=== PATIENT | female | born 1995 | race Caucasian/White ===

== ENCOUNTER 2018-12-21 17:00 | Inpatient (IN) ==
[2018-12-21 16:52] LABS: Bilirubin,Urine Negative (Negative); Blood,Urine Trace (Negative); Clarity,Urine Cloudy (Clear); Color,Urine Dark Yellow (Yellow); Glucose,Urine (UA) Normal (Normal); Ketones,Urine >=160 mg/dL (Negative); Leukocyte Esterase,Urine Large (Negative); Nitrite,Urine Positive (Negative); Protein,Urine 100 mg/dL (Neg-Trace); Urobilinogen,Urine Normal (Normal)
[2018-12-21 16:54] LABS: Bacteria,Urine Moderate per hpf (None-Few); Basophils % 0.1 %; Hematocrit 34.1 % (35.3-44.9); Hemoglobin 11.3 g/dL (11.5-15.4); Hyaline Casts,Urine None Seen per lpf (None-Few); Immature Granulocytes % 1.4 % (0-4); Lymphocytes # 1.1 K/mcL (0.6-4.6); Lymphocytes % 5.2 %; Mean Corpuscular HGB Conc 33.1 g/dL (31.6-35.5); Mean Corpuscular Hemoglobin 30.6 pg (28.0-33.3); Mean Corpuscular Volume 92.4 fL (83.0-100.0); Mean Platelet Volume 10.6 fL (9.4-12.4); Monocytes # 1.8 K/mcL (0.0-1.3); Monocytes % 8.5 %; Neutrophils # 18.4 K/mcL (1.6-8.9); Platelet Count 166 K/mcL (140-400); Red Blood Count 3.69 M/mcL (3.82-4.97); Red Cell Distribution Width 14.7 % (11.5-14.5); Segmented Neutrophils % 84.8 %; Squamous Epithelial Cell,Urine Many per lpf (None-Few); WBC,Urine 50-100 per hpf (0-3); White Blood Count 21.7 K/mcL (4.3-11.1)
--- NOTE | 2018-12-21 16:58 | OB/GYN History & Physical ---
Date of Encounter: 12/21/18 Time of Encounter: 16:53 Assessment and Plan (1) Breech presentation Current visit: Yes Status: Acute Qualifiers: Fetus number: single or unspecified fetus Qualified Code(s): O32.1XX0 - Maternal care for breech presentation, not applicable or unspecified (2) 38 weeks gestation of Current visit: Yes Status: Acute (3) Pyelonephritis affecting in third trimester Current visit: Yes Status: Acute UA with positive nitrites and large leukocytes. Pt has allergy of hives with amoxicillin. Will start ertapenem per Dr. Gongora's orders. Pt is tachycardic with SpO2 94-98%. tachycardia noted with minimal variab ility and late decelerations. Stat per Dr. Gongora. (4) Shortness of breath Current visit: Yes Status: Acute Concern for PE given LLE pain prior to onset of acute shortness of breath. LE doppler preliminary result is negative. Per Dr. Gongora we will hold off on CTA at this time due to tachycardia. History of Present Illness Chief complaint: shortness of breath, leg pain, flank pain, leaking fluid HPI: Ms. Banegas is a 23 year old female presenting at 38 weeks gestation with c/o shortness of breath. She reports she started having pain in her left calf yesterday. She then woke up with shortness of breath this am. She has also had nausea and vomiting and right flank pain today. She reports some leaking with coughing. She does also admit to urinary frequency. SHe denies chest pain, dysuria, and vaginal bleeding. Good FM. This is complicated by breech presentation. She has received adequate care with Dr. Ham. A negative GBS negative Past Med Surg Social Fam HX - Past Medical History Medical history: no medical history Psychiatric history: no psych history - Past Surgical History Surgical History: no surgical history - Social History Smoking Status: Never smoker Smokeless Tobacco Status: No Alcohol use: none Drug use: none - Family History Mother Hx Family Cardiac Disorders: No Hx Family Medical Disorders: No Obstetrical History - Pregnancies : 2 Para: 1 Livin Medications and Allergies Vits96/Iron Fum/Folic [ Tablet] 1 tab PO DAILY 12/21/18 [History] Allergy/AdvReac Type Severity Reaction Status Date / Time Amoxicillin Allergy Hives Verified 08/26/17 10:16 Review of System OB All systems PM: reviewed and no additional remarkable complaints except as stated Exam - Constitutional Constitutional: well developed, well nourished, mild distress - HEENT HEENT: Mucus Membranes Moist - Lungs Respiratory exam: CTAB - Cardiovascular Cardiovascular exam: +S1, +S2, tachycardia - Abdomen Abdomen: Present: gravid, non tender - Extremities Extremities exam: pedal edema (mild bilaterally, no erythema or warmth, doppler preliminary negative bilaterally) Results Result Diagrams: 12/21/18 16:38 12/21/18 16:38 All other labs normal. - VTE Reasons for not Prescribing Prophylaxis: Treatment not Indicated - Low risk for VTE
[~2018-12-21 17:00] MED LIST: Isovue-370 500 ML BOTTLE IVP ONE; Ringers Solution, Lactated 1,000 ML ONE
[2018-12-21 17:02] LABS: Amphetamine Screen,Urine Negative ng/mL (Cutoff=1000); Barbiturate Screen,Urine Negative ng/mL (Cutoff=200); Benzodiazepines Screen,Urine Negative ng/mL (Cutoff=200); Cannabinoid Screen,Urine Negative ng/mL (Cutoff = 50); Cocaine Screen,Urine Negative ng/mL (Cutoff= 300); Opiate Screen,Urine Negative ng/mL (Cutoff=300); Phencyclidine Screen,Urine Negative ng/mL (Cutoff=25)
[2018-12-21 17:12] LABS: Alanine Aminotransferase 8 Units/L (7-52); Albumin 3.6 g/dL (3.5-5.7); Albumin/Globulin Ratio 1.4 (1.1-2.2); Alkaline Phosphatase 164 Units/L (34-104); Aspartate Amino Transferase 13 Units/L (13-39); BUN/Creatinine Ratio 13 (6-26); Bilirubin,Total 0.5 mg/dL (0.3-1.0); Blood Urea Nitrogen 6 mg/dL (6-20); Carbon Dioxide 23 mEq/L (23-29); Chloride 100 mEq/L (98-107); Globulin 2.6 g/dL (2.4-3.5); Glucose 99 mg/dL (70-105); Osmolality,Calculated 272 (280-300); Potassium 3.4 mEq/L (3.5-5.1); Sodium 132 mEq/L (136-145); Total Protein 6.2 g/dL (6.4-8.9); eGFR For African Americans > 60 (> 60); eGFR For Non-African Americans > 60 (> 60)
[2018-12-21] MEDS ORDERED: Ertapenem 1,000 MG in 0.9 % Sodium Chloride Mini Bag 100 ML IVPB SCH (17:14)
[2018-12-21] MEDS ORDERED: Gentamicin 370 MG in 0.9 % Sodium Chloride 100 ML IVPB ONE (17:34)
[2018-12-21] MEDS ORDERED: *HR* Succinylcholine 200 MG/10 ML VIAL IVP ONE (17:34)
[2018-12-21] MEDS ORDERED: Lidocaine -MPF 2% 5 ML VIAL ONE (17:34)
[2018-12-21] MEDS ORDERED: *HR* FentaNYL (PF) 100 MCG/2 ML VIAL ONE (17:34)
[2018-12-21] MEDS ORDERED: *HR* Propofol 200 MG/20 ML VIAL IVP ONE (17:34)
[2018-12-21] MEDS ORDERED: Dexamethasone 4 MG/ML VIAL ONE (17:34)
[2018-12-21] MEDS ORDERED: Ondansetron 4 MG/2 ML VIAL ONE (17:34)
[2018-12-21] MEDS ORDERED: Metoclopramide 10 MG/2 ML VIAL IVP ONE (17:40)
[2018-12-21] MEDS ORDERED: Famotidine 20 MG/2 ML VIAL IVP ONE (17:40)
[2018-12-21] MEDS ORDERED: Oxytocin 20 units/ LR 1000 mL 20 UNIT/1,000 ML BAG IVC SCH ×2 (17:45→22:07)
[2018-12-21] MEDS ORDERED: Ringers Solution, Lactated 1,000 ML ONE ×2 (17:47→18:08)
[2018-12-21] MEDS ORDERED: Clindamycin 900 MG/50 ML 900 MG/50 ML IV.SOLN IVPB ONE (17:52)
[2018-12-21] MEDS ORDERED: Ondansetron 4 MG/2 ML VIAL IVP ONE (17:54)
[2018-12-21] MEDS ORDERED: *HR* Promethazine 25 MG/ML VIAL IVP PRN (17:54)
[2018-12-21] MEDS ORDERED: Acetaminophen IV 1,000 MG/100 ML INFUS..BTL IVPB ONE (17:54)
[2018-12-21] MEDS ORDERED: *HR* OxyCODONE Immed Rel 5 MG TABLET PO PRN (17:54)
[2018-12-21] MEDS ORDERED: *HR* Oxytocin 10 UNIT/ML VIAL IM ONE ×2 (18:08→18:39)
[2018-12-21] MEDS ORDERED: *HR* HYDROMORPHONE 2 MG/ML VIAL ONE (18:14)
--- NOTE | 2018-12-21 18:27 | Anesthesia Evaluation PreOp ---
Date of Encounter: 12/21/18 Time of Encounter: 17:25 - Past History Planned Operation: c/s Cardiac History: Denies any Significant Hx Pulmonary History: Denies Any Significant HX OCEANOLOGIST History: Denies Any Significant HX Other Medical History: Renal (UTI), GERD Anesthesia History: No Prior Anesthetic Complications : Yes Test: Positive Alcohol Use: none Drug use: none Medications and Allergies Vits96/Iron Fum/Folic [ Tablet] 1 tab PO DAILY 12/21/18 [History] Allergy/AdvReac Type Severity Reaction Status Date / Time Amoxicillin Allergy Hives Verified 08/26/17 10:16 - Meds/Allergy Pre-op Review Medications Reviewed: Yes Allergies Reviewed: Yes Beta Blockers on Current Med List: No Anesthesia Results - Labs 12/21/18 16:38 12/21/18 16:38 Anesthesia Exam 120/88 130 26 fht 188 Height: 5'2" Weight: 93 NPO (# of Hours): 6 Pain Scale: 3 Pain Scale Used: Numeric (1 - 10) - HEENT Pupil (Motor): Pupils equal Mallampati: II Teeth: Normal Oral Opening: Greater than 3 - OCEANOLOGIST LOC: Oriented OCEANOLOGIST Motor: Normal RUE, Normal LUE, Normal RLE, Normal LLE, Normal Face OCEANOLOGIST Sensory: Normal: RUE, LUE, RLE, LLE, Face - Cardiac Rhythm: Regular Murmur: None - Pulmonary Breath Sounds: bilateral Clear Respiratory Effort: Symmetrical Anesthesia Assess/Plan ASA Score: 2, E Level of consciousness: Anxious Anesthetic Plan: General (risks discussed, questions answered, verbal consnet in light of emergency status) Autologous Blood: No Recovery Plan: PACU
--- NOTE | 2018-12-21 20:29 | OB/GYN Procedure Note ---
Section - Date of procedure: 12/21/18 Preop diagnosis: category 2 FHT tracing ( tachycardia with recurrent late decels, pyelonephritis), breech Post-op diagnosis: same Procedure: primary low transverse Surgeon: Clara Gongora Quantitated Blood Loss: 800 Was there an nurse assistant present: Yes Sales Marketing Director: Jing Carter Anesthesiologist: Latisha Bearden Event Security Officer: Vinayak Rolon Anesthesia Type: General section complications: none Disposition: L&D Recovery Room Specimens: Placenta, Cord blood, Cord gasses - Infant (s) Infant A Delivery Date: 12/21/18 Infant Delivery Time: 17:45 Presentation: breech Gender: Female Gram Weight: 3.855 kg at 1 minute: 8 at 5 minutes: 8 Shoulder Dystocia: not encountered - Narrative Narrative: The patient was taken to the operating room where she was prepped and draped in the usual sterile fashion in the dorsal supine position with a left-yee tilt. She was then placed under general anesthesia. A Pfannenstiel skin incision was made with the scalpel and carried through to the underlying layer of fascia. The fascia was incised in the midline and extended laterally and bluntly. The underlying rectus muscles were dissected off bluntly and in the midline allowing access into the abdomen. The peritoneum was bluntly dissected, entered, and extended superiorly and inferiorly with good visualization of the bladder. The bladder blade was inserted. The lower uterine segment was incised in a transverse fashion using the scalpel and extended using manual traction. Meconium stained fluid was noted. The infant was subsequently delivered atraumatically. The was delivered in breech presentation. The cord was clamped and cut. The infant was subsequently handed to the awaiting nursery nurse. Next, cord blood and cord gases were obtained. The placenta was removed spontaneously intact with a 3- vessel cord noted. The uterus was exteriorized and cleared of all clots and debris. The uterus was noted to be atonic so I called for 0.25mg of Hemabate of which I injected into the uterus. The uterus became firm. The uterine incision was repaired in 2 layers using 0 vicryl suture. Hemostasis was visualized. The uterus was returned to the abdomen. The uterine incision was reexamined and was noted to be hemostatic. The fascia was closed with 0 Vicryl, the subcutaneous layer was closed with 3-0 vicryl and the skin was closed with 4-0 vicryl. Sponge, lap, and instrument counts were correct x2. The patient was stable at the completion of the procedure and was subsequently transferred to the recovery room in stable condition.
[2018-12-21] MEDS: *HR* HYDROmorphone (PF) 1 MG/ML SYRINGE IVP PRN ×2 (20:34→20:55)
--- NOTE | 2018-12-21 20:43 | Anesthesia Evaluation Post Op ---
Date of Encounter: 12/21/18 Time of Encounter: 20:42 - Lungs Lungs: Clear Ascult./Percussion - Airway Airway: Non-obstructed - Cardiovascular Regular Rate - Mental Status Mental Status: Alert & Oriented, Answers Appropriately - Pain Pain Scale: 4 Pain Scale used: Numeric (1 - 10) - Nausea Vomiting Nausea Vomiting: Not Present - Hydration Hydration: Meade catheter - Discharge PostOp Status: Transfer Patient to floor (VSS, moderate pain, febrile, stable to floor for further care, no anesthetic complications)
[2018-12-21] MEDS ORDERED: Ringers Solution, Lactated 1,000 ML IVC SCH (22:07)
[2018-12-21] MEDS ORDERED: Metoclopramide 10 MG/2 ML VIAL IVP PRN (22:07)
[2018-12-21] MEDS ORDERED: Rho Immune Globulin 1,500 UNIT SYRINGE IM ONE (22:07)
[2018-12-21] MEDS ORDERED: Sennosides 8.6 MG TABLET PO PRN (22:07)
[2018-12-21] MEDS ORDERED: Ondansetron 4 MG/2 ML VIAL IVP PRN (22:07)
[2018-12-22] MEDS: Ibuprofen 600 MG TABLET PO PRN ×5 (00:53→23:40)
[2018-12-22 05:07] LABS: Basophils % 0.1 %; Immature Granulocytes % 0.9 % (0-4); Lymphocytes # 1.5 K/mcL (0.6-4.6); Mean Corpuscular HGB Conc 32.5 g/dL (31.6-35.5); Mean Corpuscular Hemoglobin 30.6 pg (28.0-33.3); Mean Corpuscular Volume 94.3 fL (83.0-100.0); Mean Platelet Volume 10.6 fL (9.4-12.4); Monocytes % 9.5 %; Neutrophils # 17.8 K/mcL (1.6-8.9); Nucleated Red Blood Cells 0.1 /100 WBC (0); Platelet Count 164 K/mcL (140-400); Red Blood Count 2.97 M/mcL (3.82-4.97); Red Cell Distribution Width 15.2 % (11.5-14.5); Segmented Neutrophils % 82.5 %; White Blood Count 21.5 K/mcL (4.3-11.1)
[2018-12-22 05:12] LABS: Hemoglobin 9.1 g/dL (11.5-15.4)
[2018-12-22] MEDS: *HR* OxyCODONE/APAP 5/325 TABLET PO PRN ×4 (06:15→23:40)
[2018-12-22] MEDS: Clindamycin 900 MG/50 ML 900 MG/50 ML IV.SOLN IVPB SCH ×4 (08:55→23:40)
[2018-12-22] MEDS: Prenatal Vit/FA 1 EACH TABLET PO SCH (08:56)
[2018-12-22] MEDS ORDERED: Prenatal Vit/FA 1 EACH TABLET PO SCH (09:00)
--- NOTE | 2018-12-22 09:59 | Cardiothoracic Consult Note ---
Date of Encounter: 12/22/18 Time of Encounter: 09:56 Assessment and Plan (1) Aberrant subclavian artery Current Visit: Yes Status: Acute The assessment and plan as outlined above was discussed with the patient and/or family members who expressed understanding and agreement. All questions were answered. I have spoken to the primary referring physician. 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 Currently there would be no indication for surgical resection and reimplantation. As the patient is not having any compromise of her esophageal function throughout the last 24 years of her life and is not in need of any esophageal procedure, no further follow-up is required. More than 50% of the time spent with research and education. - History of Present Illness Consult date: 12/22/18 Requesting physician: Clara Gongora Consult reason: aberrant subclavian artery Chief complaint: sob History of present illness: Ms. Banegas is a 23 year old female who presented to the [facility] on 12/21/18 for shortness of breath and some tenderness in her calf. Her workup included a CT scan of the chest rule out pulmonary embolism given the symptoms and . 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 Her Tenderness and shortness of breath today are improved. Past Med Surg Social Fam HX - Past Medical History Medical history: no medical history Psychiatric history: no psych history - Past Surgical History Surgical History: other Additional surgical history: Oral surgery - Social History Smoking Status: Never smoker Smokeless Tobacco Status: No Alcohol use: none Drug use: none - Family History Mother Hx Family Cardiac Disorders: No Hx Family Medical Disorders: No - Additional Family History Additional family history: cva, breast cancer, brain cancer Medications and Allergies Vits96/Iron Fum/Folic [ Tablet] 1 tab PO DAILY 12/21/18 [History] Allergy/AdvReac Type Severity Reaction Status Date / Time Amoxicillin Allergy Hives Verified 12/21/18 21:00 All Systems Review: The remainder of the systems were reviewed and are negative - Cardiovascular Cardiovascular: dyspnea on exertion - Gastrointestinal Gastrointestinal: other (dyspepsia with ) - Genitourinary Genitourinary: other (slight incontinence during ) Physical Examination Vital Signs, Last 4 Hours Temp Pulse Resp BP Pulse Ox 12/22/18 09:14 14 12/22/18 07:45 98.3 F 114 20 109/65 96 General: Conversant, No Apparent Distress, Well developed, Well nourished HEENT: Atraumatic, Normocephaly, Trachea midline Neck: Normal carotid pulses Cardiac: Reg Rate and Rhythm, Normal S1 and S2, No Murmur Lungs: Normal Breath Sounds Neuro: Alert and responsive, No focal deficits noted, Cranial nerves intact, Motor nerves intact Vascular: Normal capillary refill Abdomen: Soft, Other (slight tenderness given c section in the last 24 hours) Extremities: No Clubbing, No Cyanosis, No Edema, Normal Pulses Results 12/22/18 04:46 12/21/18 16:38 Lab Results, Last 24 hours 12/21/18 12/21/18 12/22/18 16:38 16:38 04:46 WBC 21.7 H 21.5 H Hgb 11.3 L 9.1 L D Hct 34.1 L 28.0 L Plt Count 166 164 Sodium 132 L Potassium 3.4 L Chloride 100 Carbon Dioxide 23 BUN 6 Creatinine 0.48 L Glucose 99 Calcium 9.0 Total Bilirubin 0.5 AST 13 ALT 8 Alkaline Phosphatase 164 H - Imaging Chest Xray: image reviewed Consult Discharge Plan - Plan Referrals: Amber Lozada CNP [Primary Care Provider] -
--- NOTE | 2018-12-22 11:11 | Gastroenterology Consult Note ---
<Juan Miguel Shresthan M - Last Filed: 12/22/18 11:09> Date of Encounter: 12/22/18 Time of Encounter: 09:15 - Assessment and plan (1) Abnormal CT scan, esophagus Status: Acute Assessment and plan: CTA was done due to complaints of shortness of breath and tachycardia followinga section. Imaging shows that heresophagus is compressed between the trachea and a diverticulum. She denies any symptoms at all she is tolerating aa diet without difficulty. Patient was seen by cardiovascular surgeon and surgery for an aberrant aorta, no surgery was indicated. Pt can follow up as an outpatient as there are no acute or past symptoms of esophageal obstruction. - Time Spent With Patient Total time spent is greater than 50% in coordination of care (as documented) at patient's floor/unit and/or counseling patient: GI History of Present Illness - Data of Consult Patient: new to practice Consult date: 12/22/18 Requesting Physician: Tracey Cutler CNM - Consult Narrative Reason for consult: abnormality of the esophagus on CTA History of present illness: Ms Banegas is 23-year-old female who is status post section. She will developed tachycardia and shortness of breath. CTA of the chest was done which showed no PE however there was findings that her esophagus was compressed between the trachea and a diverticulum. She denies any dysphagia, odynophagia, or acid reflux. She denies any epigastric pain nausea or vomiting. Past Med Surg Social Fam HX - Past Medical History Medical history: no medical history Psychiatric history: no psych history - Past Surgical History Surgical History: other Additional surgical history: Oral surgery - Social History Smoking Status: Never smoker Smokeless Tobacco Status: No Alcohol use: none Drug use: none - Family History Mother Hx Family Cardiac Disorders: No Hx Family Medical Disorders: No Review of Systems: GI: as per [facility] GENERAL: denies fever, has some chills EYES: denies yellow discoloration ENT: denies pain with swallowing or difficulty swallowing CARDIO: see HPI RESP: see HPI : denies change in color of urine NEURO: denies any weakness HEME: Denies any bruising MS: denies joint pain, joint swelling or back pain. DERM: denies rash or itching PSYCH: Denies history of anxiety or depression - Constitutional Vitals: Temp Pulse Resp BP Pulse Ox 98.3 F 114 14 109/65 96 07/03/19 07:45 12/22/18 07:45 12/22/18 09:14 12/22/18 07:45 12/22/18 07:45 Exam: CONSTITUTIONAL:alert, no acute distress.HEAD:normocephalic.EYES:no jaundice.NECK:no obvious swelling.HEART:regular rate and rhythm, no murmurs.LUNGS:bilateral good air entry.ABDOMEN:non distended, soft, non tender, no masses palpable, no organomegaly.RECTAL EXAM:Deferred.EX TREMITIES:no clubbing, cyanosis or edema.SKIN:no stigmata of chronic liver disease.NEUROLOGIC:no obvious focal defect. Results - Labs CBC & Chem 7: 12/22/18 04:46 12/21/18 16:38 Labs: Entire Visit 12/22/18 04:46 Hgb 9.1 L D Hct 28.0 L - Impressions Impressions Chest CTA 12/21/18 21:00 IMPRESSION: 1. No evidence for filling defect to indicate acute pulmonary embolism. Note that due to technical factors the distal branches particularly segmental and subsegmental branches are not well enhanced and could obscure small emboli. 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 3. Mural soft tissue density felt to represent mural plaque involving the length of the common hepatic artery reducing the enhancing lumen to about 25% of normal indicating high-grade stenosis. Similar but less pronounced finding noted involving short segment of splenic artery at the origin. These findings may be better assessed with a CT angiogram deemed clinically necessary. 4. Bibasilar subsegmental atelectasis. The findings were sent to the Radiology Results Communication [facility] at 10:13 pm on 12/21/2018to be communicated to a licensed caregiver. D/ / Julio C Jeff MD / Julio C Jeff MD Interpreting Provider: Julio C Jeff MD Consult Discharge Plan - Plan Referrals: Chato Ham MD [Partnered Physician] - Prescriptions: Breast Pump [BREAST PUMP] 1 each .ROUTE PRN PRN #1 each PRN Reason: latch on difficulty Ferrous Sulfate 325 mg PO BIDWM #60 tablet metroNIDAZOLE [Flagyl] 500 mg PO BID #20 tablet levoFLOXacin [Levaquin] 500 mg PO DAILY #10 tablet Ibuprofen [Motrin] 600 mg PO Q6HR PRN #40 tablet PRN Reason: Cramping OxyCODONE/APAP 5/325 [Percocet 5/325 MG] 1 each PO Q4HR PRN 7 Days #28 tablet PRN Reason: post op pain <Hemal Meyers - Last Filed: 12/28/18 03:42> Date of Encounter: 12/22/18 - Time Spent With Patient Total time spent is greater than 50% in coordination of care (as documented) at patient's floor/unit and/or counseling patient: GI History of Present Illness - Data of Consult Requesting Physician: Sandra Perdue - Consult Narrative History of present illness: Ms. Banegas is a 23 year old female - Constitutional Vitals: Temp Pulse Resp BP Pulse Ox 98.2 F 88 16 108/67 96 12/26/18 08:46 12/26/18 08:46 12/26/18 08:46 12/26/18 08:46 12/26/18 08:46 Results - Labs CBC & Chem 7: 12/26/18 05:38 12/25/18 05:08 - Attending Attestation 23 year old female with rather rare finding as above. Reviewed scan. Agree with cardiovascular assessment. Patient asymptomatic at this time. No dysphagia. CTA negative for PE. Recommend no intervention at this time - watchful waiting.
[2018-12-22] MEDS ORDERED: Rho Immune Globulin 1,500 UNIT SYRINGE IM ONE ×2 (12:14→16:55)
--- NOTE | 2018-12-22 12:32 | OB/GYN Progress Note ---
Date of Encounter: 12/22/18 Time of Encounter: 12:29 - Assessment and Plan (1) Status post primary low transverse section Current Visit: Yes Status: Acute Continue routine care anticipate discharge home tomorrow (2) Pyelonephritis affecting in third trimester Current Visit: Yes Status: Acute cultures still pending at this time Subjective - Subjective Principal diagnosis: /postop day 1 Interval history: Patient is postop day 1 following a primary c/s for tachycardia with decels. Patient report pain is well controlled. No documented fever for past 9 hours. Cultures still pending. Patient reports: appetite normal, voiding normally, pain well controlled : in NICU Objective - Vital Signs Latest vital signs: Vital Signs Temp Pulse Resp BP Pulse Ox 12/22/18 09:14 14 12/22/18 07:45 98.3 F 114 20 109/65 96 12/22/18 03:55 99.8 F H 120 14 116/68 97 12/22/18 00:45 97.9 F 98 16 122/76 99 12/21/18 23:45 98.2 F 105 16 108/70 96 12/21/18 23:00 98.2 F 108 16 104/65 94 12/21/18 22:18 98.2 F 109 16 119/71 95 12/21/18 21:45 98.3 F 105 16 111/65 95 Intake and Output 12/21/18 12/22/18 12/22/18 23:59 07:59 15:59 Intake Total 450 / 450 Output Total 1000 / 1000 715 / 715 Balance -1000 / -1000 -265 / -265 Intake: IV Fluids 50 / 50 Cleocin Premix 900 MG/50 ML 900 50 / 50 mg In 50 ml @ 50 mls/hr IVPB Q8HR [facility] Rx#:[id number] Oral 400 / 400 Output: Catheter 1000 / 1000 715 / 715 Other: Weight 93.894 kg 85.774 kg Patient Weight 12/22/18 23:59 Weight 85.774 kg - Exam Lungs: bilateral: normal Extremities: Present: normal Abdomen: Present: normal appearance, soft Incision: Present: dry, dressed Uterus: Present: normal, firm Fundal Height: 2 (U/2) - Labs Labs: Laboratory Results - last 24 hr 12/21/18 12/21/18 12/21/18 16:38 16:38 16:38 WBC 21.7 H RBC 3.69 L Hgb 11.3 L Hct 34.1 L MCV 92.4 MCH 30.6 MCHC 33.1 RDW 14.7 H Plt Count 166 MPV 10.6 Immature Gran % 1.4 Seg Neutrophils % 84.8 Lymphocytes % 5.2 Monocytes % 8.5 Eosinophils % 0.0 Basophils % 0.1 Neutrophils # 18.4 H Lymphocytes # 1.1 Monocytes # 1.8 H Eosinophils # 0.0 Basophils # 0.0 Nucleated RBCs/100 WBC Sodium Potassium Chloride Carbon Dioxide BUN Creatinine Est GFR ( Amer) Est GFR (Non-Af Amer) BUN/Creatinine Ratio Glucose Calculated Osmolality Calcium Total Bilirubin AST ALT Alkaline Phosphatase Serum Total Protein Albumin Globulin Albumin/Globulin Ratio Urine Color Dark Yellow Urine Clarity Cloudy A Urine pH 6.0 Ur Specific Dighton 1.020 Urine Protein 100 H Urine Glucose (UA) Normal Urine Ketones >=160 H Urine Blood Trace H Urine Nitrite Positive A Urine Bilirubin Negative Urine Urobilinogen Normal Ur Leukocyte Esterase Large H Urine Microscopic RBC 3-5 H Urine Microscopic WBC 50-100 H Ur Squamous Epith Cells Many H Urine Bacteria Moderate H Hyaline Casts None Seen Ur Culture Indicated? YES A Random Gentamicin Urine Opiates Screen Negative Ur Buprenorphine Scrn Negative Ur Barbiturates Screen Negative Ur Phencyclidine Scrn Negative Ur Amphetamines Screen Negative U Benzodiazepines Scrn Negative Urine Cocaine Screen Negative U Marijuana (THC) Screen Negative Ur Drug Screen Interp See Below Screen Baby's Blood Type Mother's Blood Type Rhogam Indicated Rhogam Req for Mother 12/21/18 12/21/18 12/22/18 16:38 19:05 04:46 WBC 21.5 H RBC 2.97 L Hgb 9.1 L D Hct 28.0 L MCV 94.3 MCH 30.6 MCHC 32.5 RDW 15.2 H Plt Count 164 MPV 10.6 Immature Gran % 0.9 Seg Neutrophils % 82.5 Lymphocytes % 7.0 Monocytes % 9.5 Eosinophils % 0.0 Basophils % 0.1 Neutrophils # 17.8 H Lymphocytes # 1.5 Monocytes # 2.0 H Eosinophils # 0.0 Basophils # 0.0 Nucleated RBCs/100 WBC 0.1 H Sodium 132 L Potassium 3.4 L Chloride 100 Carbon Dioxide 23 BUN 6 Creatinine 0.48 L Est GFR ( Amer) > 60 Est GFR (Non-Af Amer) > 60 BUN/Creatinine Ratio 13 Glucose 99 Calculated Osmolality 272 L Calcium 9.0 Total Bilirubin 0.5 AST 13 ALT 8 Alkaline Phosphatase 164 H Serum Total Protein 6.2 L Albumin 3.6 Globulin 2.6 Albumin/Globulin Ratio 1.4 Urine Color Urine Clarity Urine pH Ur Specific Dight[place] Urine Protein Urine Glucose (UA) Urine Ketones Urine Blood Urine Nitrite Urine Bilirubin Urine Urobilinogen Ur Leukocyte Esterase Urine Microscopic RBC Urine Microscopic WBC Ur Squamous Epith Cells Urine Bacteria Hyaline Casts Ur Culture Indicated? Random Gentamicin Urine Opiates Screen Ur Buprenorphine Scrn Ur Barbiturates Screen Ur Phencyclidine Scrn Ur Amphetamines Screen U Benzodiazepines Scrn Urine Cocaine Screen U Marijuana (THC) Screen Ur Drug Screen Interp Screen NEGATIVE Baby's Blood Type A RH POSITIVE Mother's Blood Type A RH NEGATIVE Rhogam Indicated YES Rhogam Req for Mother 1 12/22/18 04:46 WBC RBC Hgb Hct MCV MCH MCHC RDW Plt Count MPV Immature Gran % Seg Neutrophils % Lymphocytes % Monocytes % Eosinophils % Basophils % Neutrophils # Lymphocytes # Monocytes # Eosinophils # Basophils # Nucleated RBCs/100 WBC Sodium Potassium Chloride Carbon Dioxide BUN Creatinine Est GFR ( Amer) Est GFR (Non-Af Amer) BUN/Creatinine Ratio Glucose Calculated Osmolality Calcium Total Bilirubin AST ALT Alkaline Phosphatase Serum Total Protein Albumin Globulin Albumin/Globulin Ratio Urine Color Urine Clarity Urine pH Ur Specific Dight[place] Urine Protein Urine Glucose (UA) Urine Ketones Urine Blood Urine Nitrite Urine Bilirubin Urine Urobilinogen Ur Leukocyte Esterase Urine Microscopic RBC Urine Microscopic WBC Ur Squamous Epith Cells Urine Bacteria Hyaline Casts Ur Culture Indicated? Random Gentamicin 0.4 Urine Opiates Screen Ur Buprenorphine Scrn Ur Barbiturates Screen Ur Phencyclidine Scrn Ur Amphetamines Screen U Benzodiazepines Scrn Urine Cocaine Screen U Marijuana (THC) Screen Ur Drug Screen Interp Screen Baby's Blood Type Mother's Blood Type Rhogam Indicated Rhogam Req for Mother
--- NOTE | 2018-12-22 12:59 | Electrocardiograph Report ---
[address] [address] Test Date: 2018-12-21 Pat Name: Sivan Banegas Department: 101 Room: [facility] Gender: F Medical Insurance Collector: HEATHER : 1995 Requested By: Tracey Wiggins Order Number: [id number] Reading MD: Migdalia Tejada Measurements Intervals O'Brien Rate: 132 P: 46 OH: 148 QRS: 36 QRSD: 88 T: 46 QT: 378 QTc: 456 Interpretive Statements SINUS TACHYCARDIA NONSPECIFIC T-WAVE ABNORMALITY ABNORMAL RHYTHM ECG Electronically Signed On 12-22-2018 12:57:25 EDT by Migdalia Tejada
[2018-12-22] MEDS ORDERED: Ertapenem 1,000 MG in 0.9 % Sodium Chloride Mini Bag 100 ML IVPB SCH (17:00)
[2018-12-22] MEDS: Gentamicin 370 MG in 0.9 % Sodium Chloride 100 ML IVPB SCH (17:44)
[2018-12-23] MEDS ORDERED: Acetaminophen 325 MG TABLET PO ONE (01:01)
[2018-12-23] MEDS: Simethicone 80 MG TAB.CHEW PO PRN ×2 (01:09→08:13)
[2018-12-23] MEDS: *HR* OxyCODONE/APAP 5/325 TABLET PO PRN ×4 (05:46→23:10)
[2018-12-23] MEDS: Ibuprofen 600 MG TABLET PO PRN ×3 (05:46→23:10)
[2018-12-23 08:04] LABS: Hematocrit 23.4 % (35.3-44.9); Hemoglobin 7.6 g/dL (11.5-15.4); Mean Corpuscular HGB Conc 32.5 g/dL (31.6-35.5); Mean Corpuscular Hemoglobin 30.9 pg (28.0-33.3); Mean Corpuscular Volume 95.1 fL (83.0-100.0); Mean Platelet Volume 10.7 fL (9.4-12.4); Platelet Count 148 K/mcL (140-400); Red Blood Count 2.46 M/mcL (3.82-4.97); Red Cell Distribution Width 15.2 % (11.5-14.5); White Blood Count 22.6 K/mcL (4.3-11.1)
[2018-12-23] MEDS: Clindamycin 900 MG/50 ML 900 MG/50 ML IV.SOLN IVPB SCH ×2 (08:14→16:40)
[2018-12-23] MEDS: Prenatal Vit/FA 1 EACH TABLET PO SCH (08:14)
[2018-12-23 09:57] LABS: Basophils % 0.1 %; Eosinophils % 0.1 %; Immature Granulocytes % 1.5 % (0-4); Lymphocytes # 1.5 K/mcL (0.6-4.6); Lymphocytes % 6.7 %; Monocytes # 2.2 K/mcL (0.0-1.3); Monocytes % 9.8 %; Neutrophils # 18.5 K/mcL (1.6-8.9); Segmented Neutrophils % 81.8 %
--- NOTE | 2018-12-23 11:26 | OB/GYN Progress Note ---
Date of Encounter: 12/23/18 Time of Encounter: 11:24 - Assessment and Plan (1) Chorioamnionitis, delivered, current hospitalization Current Visit: Yes Status: Acute This is a clinical diagnosis based on both patient and symptoms. Pathology evaluation is pending. Patient is still having spiking fevers, urine culture negative. With last fever, no blood cultures obtained. Patient has a long history of being on oral clindamycin, unknown if there is some resistance inherent in this patient's constitution to clindamycin. Continue Clinda and gent and add back ertapenem as she has taken it without reaction, known amoxicillin allergy, to increase gram-positive coverage. Continue to observe. Clinically patient is improving (2) Postoperative fever Current Visit: Yes Status: Acute Patient with a 102.1 fever just after midnight today. She was symptomatic with chills at that time. White count continues to remain elevated without much change and differential continues to remain the same. In addition of ertapenem antibiotic, as previously recommended by the ID service. Continue close observation. (3) Status post primary low transverse section Current Visit: Yes Status: Acute The patient had a nonreassuring tracing with maternal tachycardia and fever. At the time there was concern about cardiovascular issues SNOMED Code(s): 652733024, [id number], [id number], [id number], [id number] (4) Postoperative anemia due to acute blood loss Current Visit: Yes Status: Acute The admitting hemoglobin was 11, postop day 9.1, postop day 2 hemoglobin was 7.4. Repeat H&H later today to confirm stability. Patient clinically stable Subjective - Subjective Principal diagnosis: POD2 Interval history: The patient is tolerating a regular diet, ambulating, voiding and having return of bowel function. She is able to ambulate to the NICU to visit her who is improving. She had fevers and chills last night. She reports light vaginal bleeding Patient reports: appetite normal, voiding normally, pain well controlled, ambulating normally, no dizzy ambulation, no nauseated [place]: in NICU (improving) Objective - Vital Signs Latest vital signs: Vital Signs Temp Pulse Resp BP Pulse Ox 12/23/18 08:21 97.5 F L 95 16 93/53 99 12/23/18 05:40 97.6 F 95 14 100/65 100 12/23/18 02:45 97.7 F 96 14 103/60 97 12/23/18 00:40 102.1 F H 131 14 106/64 99 12/22/18 23:46 100.9 F H 104 14 115/62 100 12/22/18 21:30 98 F 107 14 105/58 100 12/22/18 17:30 14 12/22/18 17:23 98.5 F 116 16 105/56 12/22/18 12:10 98.1 F 107 14 99/59 98 Intake and Output 12/22/18 12/23/18 12/23/18 23:59 07:59 15:59 Intake Total 500 / 1000 650 / 800 150 / 800 Output Total 1000 / 2315 900 / 900 Balance -500 / -1315 650 / -100 -750 / -100 Intake: IV Fluids 0 / 100 50 / 50 Cleocin Premix 900 MG/50 ML 900 0 / 100 50 / 50 mg In 50 ml @ 50 mls/hr IVPB Q8HR [facility] Rx#:[id number] Oral 500 / 900 600 / 750 150 / 750 Output: Urine 1000 / 1600 900 / 900 - Exam Lungs: bilateral: normal Chest: Normal S1, Normal S2 Extremities: Present: normal, edema (Mild pretibial, stable). Absent: tenderness Abdomen: Present: normal appearance, soft, tenderness (Minimal and appropriate), other (No peritoneal signs, no guarding or rigidity). Absent: distention Incision: Present: normal, dry, intact, dressed Uterus: Present: firm, tenderness (Minimal and appropriate) Comments: Fundus at U -2 - Labs Labs: Laboratory Results - last 24 hr 12/23/18 07:40 WBC 22.6 H RBC 2.46 L Hgb 7.6 L D Hct 23.4 L MCV 95.1 MCH 30.9 MCHC 32.5 RDW 15.2 H Plt Count 148 MPV 10.7 Immature Gran % 1.5 Seg Neutrophils % 81.8 Lymphocytes % 6.7 Monocytes % 9.8 Eosinophils % 0.1 Basophils % 0.1 Neutrophils # 18.5 H Lymphocytes # 1.5 Monocytes # 2.2 H Eosinophils # 0.0 Basophils # 0.0 - Allied health notes Allied health notes reviewed: nursing
[2018-12-23] MEDS: Ertapenem 1,000 MG in 0.9 % Sodium Chloride Mini Bag 100 ML IVPB SCH (13:33)
[2018-12-23 13:55] LABS: Hematocrit 24.3 % (35.3-44.9); Hemoglobin 7.9 g/dL (11.5-15.4)
[2018-12-23] MEDS: Gentamicin 370 MG in 0.9 % Sodium Chloride 100 ML IVPB SCH (18:18)
--- NOTE | 2018-12-23 23:48 | Event Note ---
Date of Encounter: 12/23/18 Time of Encounter: 23:44 Called for patient spiking a fever of 101. She last spiked about 24 hours ago at 101.2 she is postop day 2 from a urgent section. [place] was treated for infection. Cultures have been negative. Urine culture on this patient has been negative. Her CBC has had a stable leukocytosis around 21-22 with a left shift despite gent and Clinda. The patient had received 1 dose of ertapenem initially after delivery per ID recommendations but then this was discontinued. The patient is not receiving penicillin due to amoxicillin allergy. She reports feeling slightly lightheaded when she stands but does not have any syncope or loss of consciousness. She appreciates this more right after she has been dosed with Percocet. She has been getting Percocet and ibuprofen [id number] for pain control. She reports only incisional pain. She has minimal vaginal bleeding. On exam now, lungs are clear to auscultation all avery. She is tachycardic. Her incision is without erythema or drainage. She again reports minimal vaginal lochia. She is active in caring for her which is in the room. She reports no dyspnea. She feels hot to the touch and appears flushed. Her mucous score is 6. She has been encouraged to return to bed. Hospitalist service has been contacted for further evaluation, monitoring and maternal support. Blood cultures have been drawn. Consider septic pelvic thrombophlebitis, treat with heparin if no other etiology identified. Placenta has currently been sent for pathology but no report available at this time
[2018-12-23] MEDS ORDERED: Isovue-370 500 ML BOTTLE IVP ONE (23:56)
[2018-12-24] MEDS: Clindamycin 900 MG/50 ML 900 MG/50 ML IV.SOLN IVPB SCH ×2 (02:31→09:47)
[2018-12-24] MEDS: *HR* OxyCODONE/APAP 5/325 TABLET PO PRN ×4 (03:11→20:29)
[2018-12-24] MEDS: Ibuprofen 600 MG TABLET PO PRN ×3 (06:29→20:31)
[2018-12-24] MEDS: Prenatal Vit/FA 1 EACH TABLET PO SCH (08:11)
[2018-12-24] MEDS: Ertapenem 1,000 MG in 0.9 % Sodium Chloride Mini Bag 100 ML IVPB SCH (08:12)
[2018-12-24 08:15] LABS: Basophils % 0.2 %; Eosinophils # 0.1 K/mcL (0.0-0.6); Eosinophils % 0.5 %; Hematocrit 22.9 % (35.3-44.9); Hemoglobin 7.4 g/dL (11.5-15.4); Lymphocytes # 2.3 K/mcL (0.6-4.6); Lymphocytes % 13.8 %; Mean Corpuscular HGB Conc 32.3 g/dL (31.6-35.5); Mean Corpuscular Hemoglobin 30.2 pg (28.0-33.3); Mean Corpuscular Volume 93.5 fL (83.0-100.0); Mean Platelet Volume 11.2 fL (9.4-12.4); Monocytes # 1.1 K/mcL (0.0-1.3); Monocytes % 6.5 %; Neutrophils # 12.5 K/mcL (1.6-8.9); Nucleated Red Blood Cells 0.1 /100 WBC (0); Platelet Count 209 K/mcL (140-400); Red Blood Count 2.45 M/mcL (3.82-4.97); Red Cell Distribution Width 14.8 % (11.5-14.5); White Blood Count 16.3 K/mcL (4.3-11.1)
[2018-12-24] MEDS ORDERED: Aminoglycoside Consult 1 EACH MC ONE (10:29)
[2018-12-24] MEDS ORDERED: 0.9 % Sodium Chloride 500 ML ONE (12:32)
[2018-12-24] MEDS ORDERED: *HR* Midazolam HCl 2 MG/2 ML VIAL ONE (12:36)
[2018-12-24] MEDS ORDERED: *HR* Midazolam HCl 2 MG/2 ML VIAL IVP ONE (12:37)
[2018-12-24] MEDS ORDERED: *HR* FentaNYL (PF) 100 MCG/2 ML VIAL IVP ONE (12:37)
[2018-12-24] MEDS ORDERED: *HR* FentaNYL (PF) 100 MCG/2 ML VIAL ONE (12:37)
[2018-12-24 14:23] LABS: Basophils % 0.2 %; Eosinophils # 0.1 K/mcL (0.0-0.6); Eosinophils % 0.8 %; Hematocrit 22.6 % (35.3-44.9); Hemoglobin 7.3 g/dL (11.5-15.4); Lymphocytes # 1.8 K/mcL (0.6-4.6); Lymphocytes % 13.5 %; Mean Corpuscular HGB Conc 32.3 g/dL (31.6-35.5); Mean Corpuscular Hemoglobin 31.1 pg (28.0-33.3); Mean Corpuscular Volume 96.2 fL (83.0-100.0); Mean Platelet Volume 10.8 fL (9.4-12.4); Monocytes # 0.8 K/mcL (0.0-1.3); Monocytes % 5.8 %; Neutrophils # 10.1 K/mcL (1.6-8.9); Platelet Count 210 K/mcL (140-400); Red Blood Count 2.35 M/mcL (3.82-4.97); Segmented Neutrophils % 77.7 %
[2018-12-24] MEDS: Meropenem 1,000 MG in 0.9 % Sodium Chloride Mini Bag 100 ML IVPB SCH ×2 (15:45→23:50)
--- NOTE | 2018-12-24 17:38 | OB/GYN Progress Note ---
Date of Encounter: 12/24/18 Time of Encounter: 17:35 - Assessment and Plan (1) Postoperative complication of section Current Visit: Yes Status: Acute Doing well in terms of pain control. Incision looks good. Patient is ambulating. (2) Postoperative anemia due to acute blood loss Current Visit: Yes Status: Acute Stable, no active bleeding noted. Pt minimally symptomatic. D/w pt possiblility of transfusion, but she has had prior transfusion reaction so will hold off at this time. (3) Postoperative fever Current Visit: Yes Status: Acute Pt on broad spectrum antibiotics for probable pylenephritis vs chorioamnionitis and now with new finding today of 6 cm fluid collection. Today after d/w pt o ptions IR was aable to drain the fluid collection of serosanguineous fluid. Will cont atb coverage for pyleonepthrits vs chorioamniotis with localized abscess. Subjective - Subjective Principal diagnosis: s/p with post op fever and now with fluid collection anterior to Interval history: Pt with fever, hypotension and fever to 101 last night. This am she feels better, she ambulates to BR with minimal orthostatic sx's. Good pain control with Percocet and Motrin. She has no other c/o. Patient reports: voiding normally [place]: doing well Objective - Vital Signs Latest vital signs: Vital Signs Temp Pulse Resp BP Pulse Ox 12/24/18 16:00 98.0 F 103 18 99/62 12/24/18 14:30 98.0 F 102 18 99/65 97 12/24/18 14:00 98.5 F 99 18 100/68 12/24/18 13:30 98.7 F 100 18 100/66 12/24/18 12:56 103 18 95/66 97 12/24/18 12:51 93 18 102/73 98 12/24/18 12:28 97.8 F 100 16 101/74 12/24/18 08:42 97.8 F 90 14 81/54 97 12/24/18 05:00 97.4 F L 86 14 94/60 95 12/24/18 00:40 98.8 F 109 18 80/50 96 12/23/18 23:21 101 F H 124 12/23/18 23:13 100 F H 133 22 89/59 100 12/23/18 20:17 98.6 F 106 14 99/67 100 12/23/18 17:52 98.1 F 108 16 82/54 97 Intake and Output 12/24/18 12/24/18 12/24/18 07:59 15:59 23:59 Intake Total 50 / 510 460 / 510 Output Total 1700 / 2289 564 / 2289 2288 Balance -1650 / -1779 -104 / -1779 - Intake: IV Fluids 50 / 150 100 / 150 Cleocin Premix 900 MG/50 ML 900 50 / 50 mg In 50 ml @ 50 mls/hr IVPB Q8HR [facility] Rx#:[id number] INVanz 1,000 MG In 0.9 % Sodium 100 / 100 Chloride (Mini-Bag +) 100 ML @ 100 mls/hr IVPB DAILY [facility] Rx#: [id number] Oral 360 / 360 Output: Urine 1700 / 2200 500 / 2200 Wound Drainage Left Abdomen Other: Meal Lunch Percent of Meal Consumed 90% Weight 95.3 kg Patient Weight 12/24/18 23:59 Weight 95.3 kg - Exam Lungs: bilateral: normal Chest: Normal S1, Normal S2 Extremities: Present: normal Abdomen: Present: normal appearance, soft. Absent: distention, tenderness Incision: Present: normal, dry, intact Uterus: Present: normal, firm - Labs Labs: Laboratory Results - last 24 hr 12/24/18 12/24/18 07:03 14:09 WBC 16.3 H 13.0 H RBC 2.45 L 2.35 L Hgb 7.4 L 7.3 L Hct 22.9 L 22.6 L MCV 93.5 96.2 MCH 30.2 31.1 MCHC 32.3 32.3 RDW 14.8 H 15.0 H Plt Count 209 210 MPV 11.2 10.8 Immature Gran % 2.0 2.0 Seg Neutrophils % 77.0 77.7 Lymphocytes % 13.8 13.5 Monocytes % 6.5 5.8 Eosinophils % 0.5 0.8 Basophils % 0.2 0.2 Neutrophils # 12.5 H 10.1 H Lymphocytes # 2.3 1.8 Monocytes # 1.1 0.8 Eosinophils # 0.1 0.1 Basophils # 0.0 0.0 Nucleated RBCs/100 WBC 0.1 H
[2018-12-25] MEDS: *HR* OxyCODONE/APAP 5/325 TABLET PO PRN ×6 (00:29→22:10)
[2018-12-25] MEDS: Ibuprofen 600 MG TABLET PO PRN ×3 (03:11→19:38)
[2018-12-25 05:52] LABS: Basophils % 0.3 %; Eosinophils # 0.2 K/mcL (0.0-0.6); Eosinophils % 2.1 %; Hematocrit 21.6 % (35.3-44.9); Hemoglobin 6.8 g/dL (11.5-15.4); Immature Granulocytes % 2.9 % (0-4); Lymphocytes # 2.3 K/mcL (0.6-4.6); Lymphocytes % 22.2 %; Mean Corpuscular HGB Conc 31.5 g/dL (31.6-35.5); Mean Corpuscular Hemoglobin 30.1 pg (28.0-33.3); Mean Corpuscular Volume 95.6 fL (83.0-100.0); Mean Platelet Volume 10.6 fL (9.4-12.4); Monocytes # 0.7 K/mcL (0.0-1.3); Monocytes % 6.6 %; Neutrophils # 6.8 K/mcL (1.6-8.9); Nucleated Red Blood Cells 0.3 /100 WBC (0); Platelet Count 226 K/mcL (140-400); Red Blood Count 2.26 M/mcL (3.82-4.97); Segmented Neutrophils % 65.9 %; White Blood Count 10.3 K/mcL (4.3-11.1)
[2018-12-25 05:53] LABS: BUN/Creatinine Ratio 13 (6-26); Blood Urea Nitrogen 6 mg/dL (6-20); eGFR For African Americans > 60 (> 60); eGFR For Non-African Americans > 60 (> 60)
[2018-12-25] MEDS: Prenatal Vit/FA 1 EACH TABLET PO SCH (08:04)
[2018-12-25] MEDS: Meropenem 1,000 MG in 0.9 % Sodium Chloride Mini Bag 100 ML IVPB SCH ×2 (08:05→15:40)
--- NOTE | 2018-12-25 08:28 | OB/GYN Progress Note ---
Date of Encounter: 12/25/18 Time of Encounter: 08:24 - Assessment and Plan (1) 38 weeks gestation of Current Visit: Yes Status: Acute (2) Chorioamnionitis, delivered, current hospitalization Current Visit: Yes Status: Acute (3) Postoperative anemia due to acute blood loss Current Visit: Yes Status: Acute (4) Postoperative complication of section Current Visit: Yes Status: Acute Subjective - Subjective Principal diagnosis: POS#4 Interval history: Sivan is a 23-year-old female who underwent a section for suspected chorio. Since surgery she is having issues with fevers, chills and pain. Patient underwent drainage of a 6 cm fluid collection anterior to the bladder yesterday. Since that time patient has felt much better. Her temperature to come down. Her white count has come down to 10.8. Patient's hemoglobin continues to drop. This morning it is at 6.8. We had a long discussion about anemia. She understands that she will continue to be weak and to get this filled back up. By concern is that numbers continue to drop slowly. We had a gilberto discussion about a blood transfusion today. She states that previously she had issues with a rash. We discussed Benadryl and Tylenol preemptively before given the blood to see if we can prevent the symptoms. She would like to do this. She feels that she would feel better with a little blood. Patient has agreed. She is having no other complaints today. She is urinating well. Her baby is doing wonderfully. Pain is well controlled. Her incision looks good this morning. Lower extremities are still swollen. Patient reports: appetite normal, voiding normally, pain well controlled, ambulating normally : doing well Objective - Vital Signs Latest vital signs: Vital Signs Temp Pulse Resp BP Pulse Ox 12/24/18 20:30 97.5 F L 86 16 86/58 100 12/24/18 16:00 98.0 F 103 18 99/62 12/24/18 14:30 98.0 F 102 18 99/65 97 12/24/18 14:00 98.5 F 99 18 100/68 12/24/18 13:30 98.7 F 100 18 100/66 12/24/18 12:56 103 18 95/66 97 12/24/18 12:51 93 18 102/73 98 12/24/18 12:28 97.8 F 100 16 101/74 12/24/18 08:42 97.8 F 90 14 81/54 97 Intake and Output 12/24/18 12/25/18 12/25/18 23:59 07:59 15:59 Intake Total 100 / 610 700 / 700 Output Total 450 / 2714 510 / 510 Balance -350 / -2104 190 / 190 Intake: IV Fluids 100 / 250 100 / 100 Merrem 1,000 MG In 0.9 % Sodium 100 / 100 100 / 100 Chloride (Mini-Bag +) 100 ML @ 200 mls/hr IVPB Q8HR [facility] Rx#: [id number] Oral 600 / 600 Output: Urine 400 / 2600 500 / 500 Wound Drainage 50 / 114 10 10 Left Abdomen 50 / 114 10 10 - Exam Lungs: bilateral: normal Extremities: Present: normal, edema Abdomen: Present: normal appearance, soft Incision: Present: normal, dry, intact Uterus: Present: normal, firm - Labs Labs: Laboratory Results - last 24 hr 12/24/18 12/25/18 12/25/18 14:09 05:08 05:08 WBC 13.0 H 10.3 RBC 2.35 L 2.26 L Hgb 7.3 L 6.8 L Hct 22.6 L 21.6 L MCV 96.2 95.6 MCH 31.1 30.1 MCHC 32.3 31.5 L RDW 15.0 H 15.0 H Plt Count 210 226 MPV 10.8 10.6 Immature Gran % 2.0 2.9 Seg Neutrophils % 77.7 65.9 Lymphocytes % 13.5 22.2 Monocytes % 5.8 6.6 Eosinophils % 0.8 2.1 Basophils % 0.2 0.3 Neutrophils # 10.1 H 6.8 Lymphocytes # 1.8 2.3 Monocytes # 0.8 0.7 Eosinophils # 0.1 0.2 Basophils # 0.0 0.0 Nucleated RBCs/100 WBC 0.3 H BUN 6 Creatinine 0.48 L Est GFR ( Amer) > 60 Est GFR (Non-Af Amer) > 60 BUN/Creatinine Ratio 13
[2018-12-25] MEDS ORDERED: Acetaminophen 325 MG TABLET PO PRN (08:33)
[2018-12-25 09:38] LABS: Basophils % 0.3 %; Eosinophils # 0.2 K/mcL (0.0-0.6); Eosinophils % 1.9 %; Hematocrit 24.5 % (35.3-44.9); Hemoglobin 7.8 g/dL (11.5-15.4); Immature Granulocytes % 2.9 % (0-4); Lymphocytes % 18.7 %; Mean Corpuscular HGB Conc 31.8 g/dL (31.6-35.5); Mean Corpuscular Hemoglobin 30.8 pg (28.0-33.3); Mean Corpuscular Volume 96.8 fL (83.0-100.0); Mean Platelet Volume 9.9 fL (9.4-12.4); Monocytes # 0.7 K/mcL (0.0-1.3); Monocytes % 6.3 %; Neutrophils # 7.3 K/mcL (1.6-8.9); Nucleated Red Blood Cells 0.2 /100 WBC (0); Platelet Count 232 K/mcL (140-400); Red Blood Count 2.53 M/mcL (3.82-4.97); Red Cell Distribution Width 14.9 % (11.5-14.5); Segmented Neutrophils % 69.9 %; White Blood Count 10.4 K/mcL (4.3-11.1)
[2018-12-25 15:54] LABS: Basophils % 0.2 %; Eosinophils # 0.2 K/mcL (0.0-0.6); Eosinophils % 1.4 %; Hematocrit 23.2 % (35.3-44.9); Hemoglobin 7.4 g/dL (11.5-15.4); Immature Granulocytes % 3.5 % (0-4); Lymphocytes % 17.3 %; Mean Corpuscular HGB Conc 31.9 g/dL (31.6-35.5); Mean Corpuscular Hemoglobin 30.5 pg (28.0-33.3); Mean Corpuscular Volume 95.5 fL (83.0-100.0); Mean Platelet Volume 9.9 fL (9.4-12.4); Monocytes # 0.6 K/mcL (0.0-1.3); Monocytes % 5.4 %; Neutrophils # 8.2 K/mcL (1.6-8.9); Nucleated Red Blood Cells 0.2 /100 WBC (0); Platelet Count 251 K/mcL (140-400); Red Blood Count 2.43 M/mcL (3.82-4.97); Red Cell Distribution Width 14.8 % (11.5-14.5); Segmented Neutrophils % 72.2 %; White Blood Count 11.3 K/mcL (4.3-11.1)
--- NOTE | 2018-12-25 18:08 | Event Note ---
Date of Encounter: 12/25/18 Time of Encounter: 18:02 Pt feeling better. States she is very weak in the am, but feels better as the day goes on. We discussed her Hbg going up and then back down. I discussed that I felt she would heal better with the additional blood. She is still hoping to go home tonight. She understands that if she would go home and her blood continues to drop she would end up back in the hospital. She has agreed to let me redraw her blood at 8 pm to see if it is stable. Her [place] drain is putting out minimal serosanguinous fluid. She would like this out soon, but has agreed to wait a few more days to assure it doesn't increase. We will await results of the CBC. She states that she did have a rash after receiving blood in 2013 after the of her first child. We discussed pretreating her with benadryl and tylenol. She does agree to this if the blood is needed.
[2018-12-25 20:51] LABS: Basophils % 0.3 %; Eosinophils # 0.2 K/mcL (0.0-0.6); Eosinophils % 1.6 %; Hematocrit 24.9 % (35.3-44.9); Hemoglobin 7.7 g/dL (11.5-15.4); Immature Granulocytes % 3.9 % (0-4); Lymphocytes # 2.4 K/mcL (0.6-4.6); Lymphocytes % 21.1 %; Mean Corpuscular HGB Conc 30.9 g/dL (31.6-35.5); Mean Corpuscular Hemoglobin 29.4 pg (28.0-33.3); Monocytes # 0.7 K/mcL (0.0-1.3); Neutrophils # 7.7 K/mcL (1.6-8.9); Nucleated Red Blood Cells 0.3 /100 WBC (0); Platelet Count 283 K/mcL (140-400); Red Blood Count 2.62 M/mcL (3.82-4.97); Red Cell Distribution Width 14.8 % (11.5-14.5); Segmented Neutrophils % 67.1 %; White Blood Count 11.4 K/mcL (4.3-11.1)
--- NOTE | 2018-12-25 21:15 | Event Note ---
Date of Encounter: 12/25/18 Time of Encounter: 21:14 Patient seen this evening. CBC is back. Hemoglobin is stable at 7.7. Patient would like to go home in the morning. She would like her COLLETTE drain removed night. It has had less than 5 mL out the entire day. Patient with no complaints. We will sent home on antibiotics and pain pills.
--- NOTE | 2018-12-25 22:07 | Event Note ---
Date of Encounter: 12/25/18 Time of Encounter: 22:06 COLLETTE drain removed without difficulty. Pt tolerated procedure well. Incision cleaned with betadyne. Steri strip placed to close incision. No bleeding. Drain with less than 5 cc since early this am.
[2018-12-26] MEDS: Meropenem 1,000 MG in 0.9 % Sodium Chloride Mini Bag 100 ML IVPB SCH ×2 (00:59→08:38)
[2018-12-26] MEDS: Ibuprofen 600 MG TABLET PO PRN (03:26)
[2018-12-26] MEDS: *HR* OxyCODONE/APAP 5/325 TABLET PO PRN ×2 (03:26→08:38)
[2018-12-26 05:48] LABS: Basophils % 0.3 %; Eosinophils # 0.2 K/mcL (0.0-0.6); Eosinophils % 1.8 %; Hematocrit 23.5 % (35.3-44.9); Hemoglobin 7.4 g/dL (11.5-15.4); Immature Granulocytes % 4.5 % (0-4); Lymphocytes % 18.7 %; Mean Corpuscular HGB Conc 31.5 g/dL (31.6-35.5); Mean Corpuscular Hemoglobin 29.8 pg (28.0-33.3); Mean Corpuscular Volume 94.8 fL (83.0-100.0); Mean Platelet Volume 9.9 fL (9.4-12.4); Monocytes # 0.7 K/mcL (0.0-1.3); Monocytes % 6.1 %; Neutrophils # 7.3 K/mcL (1.6-8.9); Nucleated Red Blood Cells 0.3 /100 WBC (0); Platelet Count 286 K/mcL (140-400); Red Blood Count 2.48 M/mcL (3.82-4.97); Red Cell Distribution Width 14.8 % (11.5-14.5); Segmented Neutrophils % 68.6 %; White Blood Count 10.6 K/mcL (4.3-11.1)
[2018-12-26] MEDS: Prenatal Vit/FA 1 EACH TABLET PO SCH (08:38)
[2018-12-26 08:48] VITALS: BP 108/67
--- NOTE | 2018-12-26 09:08 | Discharge Summary ---
Date of Encounter: 12/26/18 Time of Encounter: 09:12 - Discharge Diagnosis (1) Postoperative complication of section Priority: Primary Status: Acute Comments: Pt with post op seroma and infection either secondary to pyelo based on sx's and subtle CT findings vs chorioamniotis. Had post op seroma that was drained and she is now stable. Will d/c home on Levaquin and Flagyl. (2) Postoperative anemia due to acute blood loss Priority: Secondary Status: Acute Comments: Doing well, assymptoatic, will d/c home on iron. Pt declines transfusion. Whe is to call if becomes more symptomatic. (3) Postoperative fever Priority: Secondary Status: Acute - Discharge Medications Prescriptions: New levoFLOXacin [Levaquin] 500 mg PO DAILY #10 tablet Ibuprofen [Motrin] 600 mg PO Q6HR PRN #40 tablet PRN Reason: Cramping OxyCODONE/APAP 5/325 [Percocet 5/325 MG] 1 each PO Q4HR PRN 7 Days #28 tablet PRN Reason: post op pain Ferrous Sulfate 325 mg PO BIDWM #60 tablet metroNIDAZOLE [Flagyl] 500 mg PO BID #20 tablet No Action Vits96/Iron Fum/Folic [ Tablet] 1 tab PO DAILY Home Medications: Vits96/Iron Fum/Folic [ Tablet] 1 tab PO DAILY 12/21/18 [History] Ferrous Sulfate 325 mg PO BIDWM #60 tablet 12/26/18 [Rx] Ibuprofen [Motrin] 600 mg PO Q6HR PRN #40 tablet 12/26/18 [Rx] OxyCODONE/APAP 5/325 [Percocet 5/325 MG] 1 each PO Q4HR PRN 7 Days #28 tablet 12/26/18 [Rx] levoFLOXacin [Levaquin] 500 mg PO DAILY #10 tablet 12/26/18 [Rx] metroNIDAZOLE [Flagyl] 500 mg PO BID #20 tablet 12/26/18 [Rx] Allergies/Adverse Reactions: Allergy/AdvReac Type Severity Reaction Status Date / Time Amoxicillin Allergy Hives Verified 12/21/18 21:00 Data Procedures and tests throughout hospitalization: Laboratory Tests 12/21/18 12/21/18 12/21/18 16:38 16:38 16:38 WBC 21.7 H RBC 3.69 L Hgb 11.3 L Hct 34.1 L MCV 92.4 MCH 30.6 MCHC 33.1 RDW 14.7 H Plt Count 166 MPV 10.6 Immature Gran % 1.4 Seg Neutrophils % 84.8 Lymphocytes % 5.2 Monocytes % 8.5 Eosinophils % 0.0 Basophils % 0.1 Neutrophils # 18.4 H Lymphocytes # 1.1 Monocytes # 1.8 H Eosinophils # 0.0 Basophils # 0.0 Nucleated RBCs/100 WBC Sodium Potassium Chloride Carbon Dioxide BUN Creatinine Est GFR ( Amer) Est GFR (Non-Af Amer) BUN/Creatinine Ratio Glucose Calculated Osmolality Calcium Total Bilirubin AST ALT Alkaline Phosphatase Serum Total Protein Albumin Globulin Albumin/Globulin Ratio Urine Color Dark Yellow Urine Clarity Cloudy A Urine pH 6.0 Ur Specific [place] 1.020 Urine Protein 100 H Urine Glucose (UA) Normal Urine Ketones >=160 H Urine Blood Trace H Urine Nitrite Positive A Urine Bilirubin Negative Urine Urobilinogen Normal Ur Leukocyte Esterase Large H Urine Microscopic RBC 3-5 H Urine Microscopic WBC 50-100 H Ur Squamous Epith Cells Many H Urine Bacteria Moderate H Hyaline Casts None Seen Ur Culture Indicated? YES A Random Gentamicin Urine Opiates Screen Negative Ur Buprenorphine Scrn Negative Ur Barbiturates Screen Negative Ur Phencyclidine Scrn Negative Ur Amphetamines Screen Negative U Benzodiazepines Scrn Negative Urine Cocaine Screen Negative U Marijuana (THC) Screen Negative Ur Drug Screen Interp See Below Blood Type Antibody Screen Antibody Identification Screen Baby's Blood Type Mother's Blood Type Rhogam Indicated Rhogam Req for Mother Crossmatch MTS Gel Crossmatch 12/21/18 12/21/18 12/22/18 16:38 19:05 04:46 WBC 21.5 H RBC 2.97 L Hgb 9.1 L D Hct 28.0 L MCV 94.3 MCH 30.6 MCHC 32.5 RDW 15.2 H Plt Count 164 MPV 10.6 Immature Gran % 0.9 Seg Neutrophils % 82.5 Lymphocytes % 7.0 Monocytes % 9.5 Eosinophils % 0.0 Basophils % 0.1 Neutrophils # 17.8 H Lymphocytes # 1.5 Monocytes # 2.0 H Eosinophils # 0.0 Basophils # 0.0 Nucleated RBCs/100 WBC 0.1 H Sodium 132 L Potassium 3.4 L Chloride 100 Carbon Dioxide 23 BUN 6 Creatinine 0.48 L Est GFR ( Amer) > 60 Est GFR (Non-Af Amer) > 60 BUN/Creatinine Ratio 13 Glucose 99 Calculated Osmolality 272 L Calcium 9.0 Total Bilirubin 0.5 AST 13 ALT 8 Alkaline Phosphatase 164 H Serum Total Protein 6.2 L Albumin 3.6 Globulin 2.6 Albumin/Globulin Ratio 1.4 Urine Color Urine Clarity Urine pH Ur Specific [place] Urine Protein Urine Glucose (UA) Urine Ketones Urine Blood Urine Nitrite Urine Bilirubin Urine Urobilinogen Ur Leukocyte Esterase Urine Microscopic RBC Urine Microscopic WBC Ur Squamous Epith Cells Urine Bacteria Hyaline Casts Ur Culture Indicated? Random Gentamicin Urine Opiates Screen Ur Buprenorphine Scrn Ur Barbiturates Screen Ur Phencyclidine Scrn Ur Amphetamines Screen U Benzodiazepines Scrn Urine Cocaine Screen U Marijuana (THC) Screen Ur Drug Screen Interp Blood Type Antibody Screen Antibody Identification Screen NEGATIVE Baby's Blood Type A RH POSITIVE Mother's Blood Type A RH NEGATIVE Rhogam Indicated YES Rhogam Req for Mother 1 Crossmatch MTS Gel Crossmatch 12/22/18 12/23/18 12/23/18 04:46 07:40 13:29 WBC 22.6 H RBC 2.46 L Hgb 7.6 L D 7.9 L Hct 23.4 L 24.3 L MCV 95.1 MCH 30.9 MCHC 32.5 RDW 15.2 H Plt Count 148 MPV 10.7 Immature Gran % 1.5 Seg Neutrophils % 81.8 Lymphocytes % 6.7 Monocytes % 9.8 Eosinophils % 0.1 Basophils % 0.1 Neutrophils # 18.5 H Lymphocytes # 1.5 Monocytes # 2.2 H Eosinophils # 0.0 Basophils # 0.0 Nucleated RBCs/100 WBC Sodium Potassium Chloride Carbon Dioxide BUN Creatinine Est GFR ( Amer) Est GFR (Non-Af Amer) BUN/Creatinine Ratio Glucose Calculated Osmolality Calcium Total Bilirubin AST ALT Alkaline Phosphatase Serum Total Protein Albumin Globulin Albumin/Globulin Ratio Urine Color Urine Clarity Urine pH Ur Specific [place] Urine Protein Urine Glucose (UA) Urine Ketones Urine Blood Urine Nitrite Urine Bilirubin Urine Urobilinogen Ur Leukocyte Esterase Urine Microscopic RBC Urine Microscopic WBC Ur Squamous Epith Cells Urine Bacteria Hyaline Casts Ur Culture Indicated? Random Gentamicin 0.4 Urine Opiates Screen Ur Buprenorphine Scrn Ur Barbiturates Screen Ur Phencyclidine Scrn Ur Amphetamines Screen U Benzodiazepines Scrn Urine Cocaine Screen U Marijuana (THC) Screen Ur Drug Screen Interp Blood Type Antibody Screen Antibody Identification Screen Baby's Blood Type Mother's Blood Type Rhogam Indicated Rhogam Req for Mother Crossmatch MTS Gel Crossmatch 12/24/18 12/24/18 12/25/18 07:03 14:09 05:08 WBC 16.3 H 13.0 H RBC 2.45 L 2.35 L Hgb 7.4 L 7.3 L Hct 22.9 L 22.6 L MCV 93.5 96.2 MCH 30.2 31.1 MCHC 32.3 32.3 RDW 14.8 H 15.0 H Plt Count 209 210 MPV 11.2 10.8 Immature Gran % 2.0 2.0 Seg Neutrophils % 77.0 77.7 Lymphocytes % 13.8 13.5 Monocytes % 6.5 5.8 Eosinophils % 0.5 0.8 Basophils % 0.2 0.2 Neutrophils # 12.5 H 10.1 H Lymphocytes # 2.3 1.8 Monocytes # 1.1 0.8 Eosinophils # 0.1 0.1 Basophils # 0.0 0.0 Nucleated RBCs/100 WBC 0.1 H Sodium Potassium Chloride Carbon Dioxide BUN 6 Creatinine 0.48 L Est GFR ( Amer) > 60 Est GFR (Non-Af Amer) > 60 BUN/Creatinine Ratio 13 Glucose Calculated Osmolality Calcium Total Bilirubin AST ALT Alkaline Phosphatase Serum Total Protein Albumin Globulin Albumin/Globulin Ratio Urine Color Urine Clarity Urine pH Ur Specific [place] Urine Protein Urine Glucose (UA) Urine Ketones Urine Blood Urine Nitrite Urine Bilirubin Urine Urobilinogen Ur Leukocyte Esterase Urine Microscopic RBC Urine Microscopic WBC Ur Squamous Epith Cells Urine Bacteria Hyaline Casts Ur Culture Indicated? Random Gentamicin Urine Opiates Screen Ur Buprenorphine Scrn Ur Barbiturates Screen Ur Phencyclidine Scrn Ur Amphetamines Screen U Benzodiazepines Scrn Urine Cocaine Screen U Marijuana (THC) Screen Ur Drug Screen Interp Blood Type Antibody Screen Antibody Identification Screen Baby's Blood Type Mother's Blood Type Rhogam Indicated Rhogam Req for Mother Crossmatch MTS Gel Crossmatch 12/25/18 12/25/18 12/25/18 05:08 09:29 09:29 WBC 10.3 10.4 RBC 2.26 L 2.53 L Hgb 6.8 L 7.8 L Hct 21.6 L 24.5 L MCV 95.6 96.8 MCH 30.1 30.8 MCHC 31.5 L 31.8 RDW 15.0 H 14.9 H Plt Count 226 232 MPV 10.6 9.9 Immature Gran % 2.9 2.9 Seg Neutrophils % 65.9 69.9 Lymphocytes % 22.2 18.7 Monocytes % 6.6 6.3 Eosinophils % 2.1 1.9 Basophils % 0.3 0.3 Neutrophils # 6.8 7.3 Lymphocytes # 2.3 2.0 Monocytes # 0.7 0.7 Eosinophils # 0.2 0.2 Basophils # 0.0 0.0 Nucleated RBCs/100 WBC 0.3 H 0.2 H Sodium Potassium Chloride Carbon Dioxide BUN Creatinine Est GFR ( Amer) Est GFR (Non-Af Amer) BUN/Creatinine Ratio Glucose Calculated Osmolality Calcium Total Bilirubin AST ALT Alkaline Phosphatase Serum Total Protein Albumin Globulin Albumin/Globulin Ratio Urine Color Urine Clarity Urine pH Ur Specific [place] Urine Protein Urine Glucose (UA) Urine Ketones Urine Blood Urine Nitrite Urine Bilirubin Urine Urobilinogen Ur Leukocyte Esterase Urine Microscopic RBC Urine Microscopic WBC Ur Squamous Epith Cells Urine Bacteria Hyaline Casts Ur Culture Indicated? Random Gentamicin Urine Opiates Screen Ur Buprenorphine Scrn Ur Barbiturates Screen Ur Phencyclidine Scrn Ur Amphetamines Screen U Benzodiazepines Scrn Urine Cocaine Screen U Marijuana (THC) Screen Ur Drug Screen Interp Blood Type A NEGATIVE Antibody Screen POSITIVE Antibody Identification Anti-D Due to Rhogam Screen Baby's Blood Type Mother's Blood Type Rhogam Indicated Rhogam Req for Mother Crossmatch See Detail MTS Gel Crossmatch See Detail 12/25/18 12/25/18 12/26/18 15:40 20:26 05:38 WBC 11.3 H 11.4 H 10.6 RBC 2.43 L 2.62 L 2.48 L Hgb 7.4 L 7.7 L 7.4 L Hct 23.2 L 24.9 L 23.5 L MCV 95.5 95.0 94.8 MCH 30.5 29.4 29.8 MCHC 31.9 30.9 L 31.5 L RDW 14.8 H 14.8 H 14.8 H Plt Count 251 283 286 MPV 9.9 10.0 9.9 Immature Gran % 3.5 3.9 4.5 H Seg Neutrophils % 72.2 67.1 68.6 Lymphocytes % 17.3 21.1 18.7 Monocytes % 5.4 6.0 6.1 Eosinophils % 1.4 1.6 1.8 Basophils % 0.2 0.3 0.3 Neutrophils # 8.2 7.7 7.3 Lymphocytes # 2.0 2.4 2.0 Monocytes # 0.6 0.7 0.7 Eosinophils # 0.2 0.2 0.2 Basophils # 0.0 0.0 0.0 Nucleated RBCs/100 WBC 0.2 H 0.3 H 0.3 H Sodium Potassium Chloride Carbon Dioxide BUN Creatinine Est GFR ( Amer) Est GFR (Non-Af Amer) BUN/Creatinine Ratio Glucose Calculated Osmolality Calcium Total Bilirubin AST ALT Alkaline Phosphatase Serum Total Protein Albumin Globulin Albumin/Globulin Ratio Urine Color Urine Clarity Urine pH Ur Specific [place] Urine Protein Urine Glucose (UA) Urine Ketones Urine Blood Urine Nitrite Urine Bilirubin Urine Urobilinogen Ur Leukocyte Esterase Urine Microscopic RBC Urine Microscopic WBC Ur Squamous Epith Cells Urine Bacteria Hyaline Casts Ur Culture Indicated? Random Gentamicin Urine Opiates Screen Ur Buprenorphine Scrn Ur Barbiturates Screen Ur Phencyclidine Scrn Ur Amphetamines Screen U Benzodiazepines Scrn Urine Cocaine Screen U Marijuana (THC) Screen Ur Drug Screen Interp Blood Type Antibody Screen Antibody Identification Screen Baby's Blood Type Mother's Blood Type Rhogam Indicated Rhogam Req for Mother Crossmatch MTS Gel Crossmatch Labs on day of discharge: Labs from last 24 hours 12/26/18 12/25/18 12/25/18 05:38 20:26 15:40 WBC 10.6 11.4 H 11.3 H RBC 2.48 L 2.62 L 2.43 L Hgb 7.4 L 7.7 L 7.4 L Hct 23.5 L 24.9 L 23.2 L MCV 94.8 95.0 95.5 MCH 29.8 29.4 30.5 MCHC 31.5 L 30.9 L 31.9 RDW 14.8 H 14.8 H 14.8 H Plt Count 286 283 251 MPV 9.9 10.0 9.9 Immature Gran % 4.5 H 3.9 3.5 Seg Neutrophils % 68.6 67.1 72.2 Lymphocytes % 18.7 21.1 17.3 Monocytes % 6.1 6.0 5.4 Eosinophils % 1.8 1.6 1.4 Basophils % 0.3 0.3 0.2 Neutrophils # 7.3 7.7 8.2 Lymphocytes # 2.0 2.4 2.0 Monocytes # 0.7 0.7 0.6 Eosinophils # 0.2 0.2 0.2 Basophils # 0.0 0.0 0.0 Nucleated RBCs/100 WBC 0.3 H 0.3 H 0.2 H Blood Type Antibody Screen Antibody Identification Crossmatch MTS Gel Crossmatch 12/25/18 12/25/18 09:29 09:29 WBC 10.4 RBC 2.53 L Hgb 7.8 L Hct 24.5 L MCV 96.8 MCH 30.8 MCHC 31.8 RDW 14.9 H Plt Count 232 MPV 9.9 Immature Gran % 2.9 Seg Neutrophils % 69.9 Lymphocytes % 18.7 Monocytes % 6.3 Eosinophils % 1.9 Basophils % 0.3 Neutrophils # 7.3 Lymphocytes # 2.0 Monocytes # 0.7 Eosinophils # 0.2 Basophils # 0.0 Nucleated RBCs/100 WBC 0.2 H Blood Type A NEGATIVE Antibody Screen POSITIVE Antibody Identification Anti-D Due to Rhogam Crossmatch See Detail MTS Gel Crossmatch See Detail Preliminary micro results at discharge 12/24/18 12:30 Body Fluid Culture - Preliminary Other-Specify in Comments - Impressions ITS Impressions Chest CTA 12/21/18 21:00 IMPRESSION: 1. No evidence for filling defect to indicate acute pulmonary embolism. Note that due to technical factors the distal branches particularly segmental and subsegmental branches are not well enhanced and could obscure small emboli. 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 3. Mural soft tissue density felt to represent mural plaque involving the length of the common hepatic artery reducing the enhancing lumen to about 25% of normal indicating high-grade stenosis. Similar but less pronounced finding noted involving short segment of splenic artery at the origin. These findings may be better assessed with a CT angiogram deemed clinically necessary. 4. Bibasilar subsegmental atelectasis. The findings were sent to the Radiology Results Communication [facility] at 10:13 pm on 12/21/2018to be communicated to a licensed caregiver. D/ / Julio C Jeff MD / Julio C Jeff MD Interpreting Provider: Julio C Jeff MD Needle Aspiration CT 12/24/18 12:26 IMPRESSION: Successful CT guided placement of pelvic abscess drainage catheter. D/ / Amish Lorenzo MD / Amish Lorenzo MD Interpreting Provider: Amish Lorenzo MD Abdomen/Pelvis CT 12/24/18 23:56 IMPRESSION: Fluid collection in the pelvis anterior to the lower uterus is of indeterminate sterility though imaging characteristics suggest abscess. D/ / Olivier Michelle MD / Olivier Michelle MD Interpreting Provider: Olivier Michelle MD 12/26/18 09:07 Doing great, regular diet without n/v. No orthostatic sx's. Regular diet without n/v. Appropriate lochia. Desires d/c home. Date of admission: 12/21/18 17:00 Primary care physician: Abmer Lozada CNP Consults: 12/21/18 23:04 Consult to Hospitalist [CONS] Routine Consulting Provider: Hospitalist Magdaleno Reason for Consult: Abnormal CT findings-Kommerell's diverticulum Call Completed: Yes 12/22/18 08:12 Consult to Cardiothoracic Surgery [CONS] Routine Consulting Provider: Cardiothoracic Surgery Danisha Reason for Consult: Kommerell diverticulum Call Completed: Yes 12/23/18 23:39 Consult to Hospitalist [CONS] Stat Consulting Provider: Hospitalist Magdaleno Reason for Consult: POD2 urgent c/s with possible chorioamnionitis, now with spiking Temp equal or greater than 101 q 24 hours with maternal tachycardia, hypotension, stable post op hgb 7.9 with leukocytosis on gent, clinda and ertapenim (PCN allergy) Time Notified: 23:30 Call Completed: Yes 12/24/18 11:31 Consult to Interventional Radiology [CONS] Stat Consulting Provider: Radiology Interventional Cols Reason for Consult: Abdomin/pelvic Time Notified: 11:36 Call Completed: No - Patient Status Disposition: Home, Self-Care Condition: Good Functional capacity at discharge: independent ambulation Overall status at discharge: patient is progressing back to baseline - Discharge Instructions Follow Up With: Chato Ham MD [Partnered Physician] - - Diet and Activity Activity: increase activity as tolerated Diet: advance to your usual diet 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 Attestation: Total time spent providing and/or coordinating discharge services: Exam - Constitutional Vitals: Temp Pulse Resp BP Pulse Ox 98.2 F 88 16 108/67 96 12/26/18 08:46 12/26/18 08:46 12/26/18 08:46 12/26/18 08:46 12/26/18 08:46 General appearance IM: A&O X 3 - Respiratory Respiratory exam: Present: CTAB - Cardiovascular Cardiovascular exam IM: Present: RRR - GI/Abdominal GI/Abdominal exam IM: normal bowel sounds Incision: normal, intact - Uterus Position: 2 Fingers Below Umbilicus - Extremities Exam Extremities exam IM: Present: full ROM - Neurological Exam Neurological exam: oriented X3 - VTE Reasons for not Prescribing Prophylaxis: Treatment not Indicated - Low risk for VTE Documentation of Mechanical Device: Intermittent pneumatic compression device
--- NOTE | 2018-12-26 09:24 | Discharge Summary ---
Outpatient Proc Discharge Plan - Plan Prescriptions: Breast Pump [BREAST PUMP] 1 each .ROUTE PRN PRN #1 each PRN Reason: latch on difficulty Ferrous Sulfate 325 mg PO BIDWM #60 tablet metroNIDAZOLE [Flagyl] 500 mg PO BID #20 tablet levoFLOXacin [Levaquin] 500 mg PO DAILY #10 tablet Ibuprofen [Motrin] 600 mg PO Q6HR PRN #40 tablet PRN Reason: Cramping OxyCODONE/APAP 5/325 [Percocet 5/325 MG] 1 each PO Q4HR PRN 7 Days #28 tablet PRN Reason: post op pain Home Medications: Vits96/Iron Fum/Folic [ Tablet] 1 tab PO DAILY 12/21/18 [History] Breast Pump [BREAST PUMP] 1 each .ROUTE PRN PRN #1 each 12/26/18 [Rx] Ferrous Sulfate 325 mg PO BIDWM #60 tablet 12/26/18 [Rx] Ibuprofen [Motrin] 600 mg PO Q6HR PRN #40 tablet 12/26/18 [Rx] OxyCODONE/APAP 5/325 [Percocet 5/325 MG] 1 each PO Q4HR PRN 7 Days #28 tablet 12/26/18 [Rx] levoFLOXacin [Levaquin] 500 mg PO DAILY #10 tablet 12/26/18 [Rx] metroNIDAZOLE [Flagyl] 500 mg PO BID #20 tablet 12/26/18 [Rx]
== END 2018-12-26 10:30 | disposition home or self-care (01) | DRG 540 ==
LOC: 1NENULAB → SUATTDRO 17:00 → 1NENUOBS 22:06
PROVIDERS: ADMIT Registered Nurse; ATTEND Internal Medicine